=== PATIENT | female | born 1990 | race Caucasian/White ===

== ENCOUNTER 2016-09-10 16:23 | Emergency (ER) | payer BC ==
[2016-09-10] MEDS ORDERED: FLUCONAZOLE 100 MG TABLET PO STA (17:54)
[2016-09-10] MEDS ORDERED: PHENAZOPYRIDINE 100 MG TABLET PO STA (17:54)
[2016-09-10] MEDS ORDERED: FLUCONAZOLE 100 MG TABLET ONE (17:57)
[2016-09-10] MEDS ORDERED: PHENAZOPYRIDINE 100 MG TABLET PO ONE (17:57)
[2016-09-10] MEDS ORDERED: metroNIDAZOLE 250 MG TABLET PO STA (18:05)
[2016-09-10] MEDS ORDERED: metroNIDAZOLE 250 MG TABLET PO ONE (18:10)
== END 2016-09-10 18:15 | disposition home or self-care (01) ==
DX: N76.0 Acute vaginitis (principal); B96.89 Other specified bacterial agents as the cause of diseases classified elsewhere; B37.3 Candidiasis of vulva and vagina; F17.200 Nicotine dependence, unspecified, uncomplicated
CPT/HCPCS: 81003; 81025; 87210; 87491; 87591; 99283; A9270